=== PATIENT | female | born 1990 ===

== ENCOUNTER 2017-10-22 23:47 | Emergency (ER) | payer SELFPAY ==
[2014-08-26 09:48] VITALS: Wt 63.5 kg
[~2017-10-22 23:47] MED LIST: AMO875 PO; DOCU240C67 PO; IBU600 PO; IBU800 PO; IBUP-1618 PO; IBUP800T37 PO; KET10 PO; LOR5 PO; LOR5/325 PO; Lanolin TP; NO ROUTINE MEDS; OFLO5DRO OT; PER PO; PNV11TAB; TRA50 PO
--- NOTE | 2017-10-22 23:50 | ER Report ---
History and Physical Time Seen By : 23:50 HPI/ROS CHIEF COMPLAINT: Emergency long-term HISTORY OF PRESENT ILLNESS: This is a 27-year-old female. She was brought in by [place] [employer]. Evidently had an argument with her boyfriend who lives with her. The boyfriend had told the police that she had been making statements about that she didn't want to live and when they were talking and arguing about who would move without she said it didn't matter K she wasn't going to be alive anymore. At this time, she is very angry and will not answer any questions. She keeps saying that if her dog is left with her boyfriend that her boyfriend will kill the dog, she won't do anything until we make sure the dog is safe. She is saying that she didn't do anything wrong and she refuses to stay. She keeps saying that the please need to find all the drugs in the home. She also states that her boyfriend needs to be arrested right away. Other than these statements, she will not talk to me other than swearing at me and calling me many profane names. She was refusing to allow any blood work, urine test, or physical exam. The police indicate that there were some text messages that alluded to Hurst killing herself as well, but there was never any distinct statement of suicidal intent. She did punch a window and has a laceration on her left wrist that she will not let me evaluate. Allergies: Coded Allergies: latex (Verified Adverse Reaction, Mild, ITCHING, 10/22/17) SENSITIVE TO AVACADO AND BANANA Home Meds Reported Medications Eux679/Iron Fumarate/Fa/Dss ( 19 TABLET) 1 Each Tablet, TAB 07/07/14 Discontinued Scripts Oxycodone/Acetaminophen (OXYCODONE/ACETAMINOPHEN 5MG/325 MG) 1 Tab Tab, 1-2 TAB PO Q4H Y for PAIN, #30 TAB 0 Refills Prov:LUAN GARVIN MD 08/29/14 [Lanolin] 7 GM OINT No Conflict Check, 0 GM TP PRN Y for DISCOMFORT FOR NURSING MOTHERS Prov:LUAN GARVIN MD 08/29/14 Ibuprofen (IBUPROFEN) 800 Mg Tab, 800 MG PO Q8H@08,16,00 for 14 Days, TAB Prov:LUAN GARVIN MD 08/29/14 Docusate Calcium (DOCUSATE CALCIUM) 240 Mg Cap, 240 MG PO BID for 14 Days, CAPSULE Prov:LUAN GARVIN MD 08/29/14 Past Medical/Surgical History Reviewed Nurses Notes: Yes Old Medical Records Reviewed: Yes (reviewed old records and did not find any past medical history that his significant other than she has had a .) Hx Smoking: No Smoking Status: Former Smoker Exposure to Second Hand Smoke?: No Hx Substance Use Disorder: No Hx Alcohol Use: No Constitutional Vital Sign - Last 24 Hours 10/22/17 10/23/17 10/23/17 10/23/17 23:49 00:50 01:05 01:20 Temp 98.4 Pulse 124 97 110 115 Resp 16 B/P (MAP) 129/90 Pulse Ox 95 93 90 90 O2 Delivery Room Air 10/23/17 10/23/17 10/23/17 10/23/17 01:35 01:40 01:45 02:00 Pulse 107 112 112 114 B/P (MAP) 100/68 (79) 93/64 (74) Pulse Ox 91 92 92 10/23/17 10/23/17 10/23/17 10/23/17 02:30 02:45 03:00 03:11 Pulse 115 102 103 ??? B/P (MAP) 104/75 (85) Pulse Ox 94 10/23/17 10/23/17 10/23/17 10/23/17 03:16 03:31 03:46 03:52 Pulse 102 100 102 ??? Pulse Ox 93 93 92 94 Physical Exam Once the patient was sedated with Zyprexa 10 mg IM, Benadryl 50 mg IM, and Ativan 2 mg IM, I was able to do a physical exam although the patient was sedated at this point. General Appearance: Sedated, prior to that was alert and very angry and agitated. Eyes: Pupils equal and round no injection. ENT: Normal oral mucosa. Moist mucous membranes. Tympanic membranes are normal. Neck: Neck is supple and non tender. Respiratory: Chest is non tender, lungs are clear to auscultation. Cardiac: regular rate and rhythm Gastrointestinal: Abdomen is soft and non tender, no masses, bowel sounds normal. Musculoskeletal: Extremities have full range of motion. Non tender. Skin: She has no rashes. She does have a large flap laceration on the left volar wrist that needs to be repaired. A few small shallow lacerations around this. No other injuries noted. DIFFERENTIAL DIAGNOSIS: After history and physical exam differential diagnosis was considered for a patient with agitation, emergency long-term for suspected suicidal ideation although she will not confirm or deny this. Medical Decision Making Data Points Result Diagram: 10/23/17 0048 10/23/17 0048 Laboratory Hematology Test 10/23/17 00:48 10/23/17 03:10 Red Blood Count 5.36 M/uL (4.17-5.56) Mean Corpuscular Volume 87.7 fL (80.0-96.0) Mean Corpuscular Hemoglobin 30.6 pg (26.0-33.0) Mean Corpuscular Hemoglobin Concent 34.9 g/dL (32.0-36.0) Red Cell Distribution Width 12.7 % (11.5-14.5) Mean Platelet Volume 8.0 fL (7.2-11.1) Neutrophils (%) (Auto) 63.6 % (39.4-72.5) Lymphocytes (%) (Auto) 28.8 % (17.6-49.6) Monocytes (%) (Auto) 4.8 % (4.1-12.4) Eosinophils (%) (Auto) 2.3 % (0.4-6.7) Basophils (%) (Auto) 0.5 % (0.3-1.4) Nucleated RBC Relative Count (auto) 0.3 /100WBC Neutrophils # (Auto) 6.0 K/uL (2.0-7.4) Lymphocytes # (Auto) 2.7 K/uL (1.3-3.6) Monocytes # (Auto) 0.5 K/uL (0.3-1.0) Eosinophils # (Auto) 0.2 K/uL (0.0-0.5) Basophils # (Auto) 0.0 K/uL (0.0-0.1) Nucleated RBC Absolute Count (auto) 0.03 K/uL Sodium Level 145 mmol/L (137-145) Potassium Level 2.9 mmol/L (3.5-5.0) Chloride Level 107 mmol/L (98-107) Carbon Dioxide Level 20 mmol/L (22-31) Blood Urea Nitrogen 9 mg/dl (7-18) Creatinine 0.70 mg/dl (0.52-1.04) Glomerular Filtration Rate Calc > 60.0 Random Glucose 84 mg/dl (75-110) Calcium Level 8.8 mg/dl (8.4-10.2) Magnesium Level 2.0 mg/dl (1.7-2.2) Total Bilirubin 0.4 mg/dl (0.2-1.3) Aspartate Amino Transf (AST/SGOT) 27 U/L (0-35) Alanine Aminotransferase (ALT/SGPT) 42 U/L (0-56) Alkaline Phosphatase 52 U/L (0-126) Total Protein 6.6 gm/dl (6.3-8.2) Albumin 3.9 g/dl (3.5-5.0) Salicylates Level < 10 mg/L Salicylate Last Dose Date unk Acetaminophen Level < 10 ug/ml Serum Alcohol 117 mg/dl Urine Color Yellow Urine Clarity Clear Urine pH 5.0 pH (4.8-9.5) Urine Specific [place] 1.010 Urine Protein Negative mg/dL (NEGATIVE) Urine Glucose (UA) Negative mg/dL (NEGATIVE) Urine Ketones Trace mg/dL (NEGATIVE) Urine Blood Negative (NEGATIVE) Urine Nitrite Negative (NEGATIVE) Urine Bilirubin Negative (NEGATIVE) Urine Urobilinogen Negative mg/dL (0.2-1.9) Urine Leukocyte Esterase Negative (NEGATIVE) Urine RBC None /HPF (0-2/HPF) Urine WBC 1 /HPF (0-5/HPF) Urine Squamous Epithelial Cells Few /LPF (NONE-FEW) Urine Bacteria Negative /HPF (NONE-FEW) Urine Mucus Few /HPF (NONE-FEW) Urine HCG, Qualitative Negative (NEGATIVE) Urine Opiates Screen Negative Urine Barbiturates Screen Negative Ur Tricyclic Antidepressants Screen Negative Urine Phencyclidine Screen Negative Urine Amphetamines Screen Positive Urine Benzodiazepines Screen Negative Urine Cocaine Screen Negative Urine Cannabinoids Screen Positive Chemistry Test 10/23/17 00:48 10/23/17 03:10 White Blood Count 9.5 k/uL (4.5-11.0) Red Blood Count 5.36 M/uL (4.17-5.56) Hemoglobin 16.4 g/dL (12.0-16.0) Hematocrit 47.0 % (34.0-47.0) Mean Corpuscular Volume 87.7 fL (80.0-96.0) Mean Corpuscular Hemoglobin 30.6 pg (26.0-33.0) Mean Corpuscular Hemoglobin Concent 34.9 g/dL (32.0-36.0) Red Cell Distribution Width 12.7 % (11.5-14.5) Platelet Count 226 K/uL (150-450) Mean Platelet Volume 8.0 fL (7.2-11.1) Neutrophils (%) (Auto) 63.6 % (39.4-72.5) Lymphocytes (%) (Auto) 28.8 % (17.6-49.6) Monocytes (%) (Auto) 4.8 % (4.1-12.4) Eosinophils (%) (Auto) 2.3 % (0.4-6.7) Basophils (%) (Auto) 0.5 % (0.3-1.4) Nucleated RBC Relative Count (auto) 0.3 /100WBC Neutrophils # (Auto) 6.0 K/uL (2.0-7.4) Lymphocytes # (Auto) 2.7 K/uL (1.3-3.6) Monocytes # (Auto) 0.5 K/uL (0.3-1.0) Eosinophils # (Auto) 0.2 K/uL (0.0-0.5) Basophils # (Auto) 0.0 K/uL (0.0-0.1) Nucleated RBC Absolute Count (auto) 0.03 K/uL Glomerular Filtration Rate Calc > 60.0 Calcium Level 8.8 mg/dl (8.4-10.2) Magnesium Level 2.0 mg/dl (1.7-2.2) Total Bilirubin 0.4 mg/dl (0.2-1.3) Aspartate Amino Transf (AST/SGOT) 27 U/L (0-35) Alanine Aminotransferase (ALT/SGPT) 42 U/L (0-56) Alkaline Phosphatase 52 U/L (0-126) Total Protein 6.6 gm/dl (6.3-8.2) Albumin 3.9 g/dl (3.5-5.0) Salicylates Level < 10 mg/L Salicylate Last Dose Date unk Acetaminophen Level < 10 ug/ml Serum Alcohol 117 mg/dl Urine Color Yellow Urine Clarity Clear Urine pH 5.0 pH (4.8-9.5) Urine Specific [place] 1.010 Urine Protein Negative mg/dL (NEGATIVE) Urine Glucose (UA) Negative mg/dL (NEGATIVE) Urine Ketones Trace mg/dL (NEGATIVE) Urine Blood Negative (NEGATIVE) Urine Nitrite Negative (NEGATIVE) Urine Bilirubin Negative (NEGATIVE) Urine Urobilinogen Negative mg/dL (0.2-1.9) Urine Leukocyte Esterase Negative (NEGATIVE) Urine RBC None /HPF (0-2/HPF) Urine WBC 1 /HPF (0-5/HPF) Urine Squamous Epithelial Cells Few /LPF (NONE-FEW) Urine Bacteria Negative /HPF (NONE-FEW) Urine Mucus Few /HPF (NONE-FEW) Urine HCG, Qualitative Negative (NEGATIVE) Urine Opiates Screen Negative Urine Barbiturates Screen Negative Ur Tricyclic Antidepressants Screen Negative Urine Phencyclidine Screen Negative Urine Amphetamines Screen Positive Urine Benzodiazepines Screen Negative Urine Cocaine Screen Negative Urine Cannabinoids Screen Positive Toxicology Test 10/23/17 00:48 10/23/17 03:10 Salicylates Level < 10 mg/L Salicylate Last Dose Date unk Acetaminophen Level < 10 ug/ml Serum Alcohol 117 mg/dl Urine Opiates Screen Negative Urine Barbiturates Screen Negative Ur Tricyclic Antidepressants Screen Negative Urine Phencyclidine Screen Negative Urine Amphetamines Screen Positive Urine Benzodiazepines Screen Negative Urine Cocaine Screen Negative Urine Cannabinoids Screen Positive Urinalysis Test 10/23/17 03:10 Urine Color Yellow Urine Clarity Clear Urine pH 5.0 pH (4.8-9.5) Urine Specific [place] 1.010 Urine Protein Negative mg/dL (NEGATIVE) Urine Glucose (UA) Negative mg/dL (NEGATIVE) Urine Ketones Trace mg/dL (NEGATIVE) Urine Blood Negative (NEGATIVE) Urine Nitrite Negative (NEGATIVE) Urine Bilirubin Negative (NEGATIVE) Urine Urobilinogen Negative mg/dL (0.2-1.9) Urine Leukocyte Esterase Negative (NEGATIVE) Urine RBC None /HPF (0-2/HPF) Urine WBC 1 /HPF (0-5/HPF) Urine Squamous Epithelial Cells Few /LPF (NONE-FEW) Urine Bacteria Negative /HPF (NONE-FEW) Urine Mucus Few /HPF (NONE-FEW) Urine HCG, Qualitative Negative (NEGATIVE) EKG/Imaging EKG Interpretation 12 lead EKG: Rhythm: Sinus tachycardia, rate 105 [place]: normal QRS: normal ST segments: normal ED Course/Re-evaluation Clinical Indication for ER IV: Hydration, IV Access ED Course Patient would not cooperate, so was given Zyprexa 10mg IM, Benadryl 50mg IM and Ativan 2mg IM. She finally allowed the nurses to give these medicines injections in the thigh. Once sedated, we were able to get labs and urine and repair her laceration on her wrist. Discussed with Dr. Dash, who accepted. Recommended Cephalexin 500mg 4 times a day for 5 days. Stitches out in 7 days. Because of the low potassium, a liter of normal saline was given and the patient was given KCl 20mEq rider with this. No EKG changes noted. Procedure Procedure: Laceration Repair Consent was assumed, the patient was sedated. Wound cleaned extensively with Hibiclens and saline. Anesthesia: 1% lidocaine without epinephrine and 0.5% bupivacaine without epinephrine. Location: Left volar wrist. Length: Flap about 5 cm. Wound repair: 9 interrupted sutures. The wound repair was simple and performed by myself. Wound care instructions discussed. Sutures need to be removed in 7 days. Cephalexin 500mg four times a day for 5 days. Decision to Disposition Date: Oct 23, 2017 Decision to Disposition Time: 02:56 Depart Departure Latest Vital Signs Vital Signs Date Time Temp Pulse Resp B/P (MAP) Pulse Ox O2 Delivery O2 Flow Rate FiO2 10/23/17 03:52 ??? 94 10/23/17 03:00 104/75 (85) 10/22/17 23:49 98.4 16 Room Air Impression: Primary Impression: Suicidal risk Additional Impression: Self-injurious behavior Condition: Improved Disposition: XFER TO [facility] Referrals: BETHANY PEREIRA CNM (PCP) Problem Qualifiers BLOSSOM ARMSTRONG MD Oct 22, 2017 23:50
[2017-10-23] MEDS ORDERED: diphenhydrAMINE 50 MG/ML VIAL IM ONE (00:05)
[2017-10-23] MEDS ORDERED: OLANZapine 10 MG VIAL IM ONLY ONE (00:05)
[2017-10-23] MEDS ORDERED: WATER STERILE 10 ML VIAL IM ONLY ONE (00:05)
[2017-10-23] MEDS ORDERED: LORazepam 2 MG/ML VIAL IM ONE (00:05)
[2017-10-23 01:00] LABS: PLATELET COUNT, AUTOMATED 226 K/uL (150-450)
[2017-10-23] MEDS ORDERED: KCL (*) 20 MEQ/100 ML PREMIX 100 ML IV ONE (01:25)
[2017-10-23] MEDS ORDERED: NS(*) 0.9% 1000 ML BAG 1,000 ML IV ONE (01:25)
--- NOTE | 2017-10-23 01:36 | EKG ---
[place] [facility] [place] PENNY BOW[place] : [id number] MR: [id number] V: [id number] EXAM DATE: ORDERING PHYSICIAN: BLOSSOM ARMSTRONG TECHNOLOGIST: KARISHMA Test Reason : Blood Pressure : / mmHG Vent. Rate : 105 BPM Atrial Rate : 105 BPM P-R Int : 120 ms QRS Dur : 096 ms QT Int : 364 ms P-R-T Axes : 070 080 055 degrees QTc Int : 481 ms Sinus tachycardia Possible Left atrial enlargement Nonspecific ST findings Borderline ECG When compared with ECG of 07-JUL-2014 02:19, No significant change was found Confirmed by SUNI RICHARDS ([id number]) on 10/23/2017 6:06:51 AM Referred By: NATHANIEL Confirmed By:SUNI RICHARDS
--- NOTE | 2017-10-23 03:13 | BHS - Psychiatric Evaluation ---
ER - Title 25 MHE Evaluation Title 25 Evaluation Patient Detained By: Law Enforcement Referral Source: Patient, boyfriend, [place] Police Date Patient Detained: Oct 22, 2017 Time Patient Detained: 23:26 Date Snf Expires: Oct 25, 2017 Time Snf Expires: 23:26 Legal Status: Police Hold: No Legal Status: Residence: [facility] Assessment Data Provided By: Patient, Law Enforcement HPI/ROS: CHIEF COMPLAINT: Emergency penitentiary HISTORY OF PRESENT ILLNESS: This is a 27-year-old female. She was brought in by [place] [employer]. Evidently had an argument with her boyfriend who lives with her. The boyfriend had told the police that she had been making statements about that she didn't want to live and when they were talking and arguing about who would move without she said it didn't matter K she wasn't going to be alive anymore. At this time, she is very angry and will not answer any questions. She keeps saying that if her dog is left with her boyfriend that her boyfriend will kill the dog, she won't do anything until we make sure the dog is safe. She is saying that she didn't do anything wrong and she refuses to stay. She keeps saying that the please need to find all the drugs in the home. She also states that her boyfriend needs to be arrested right away. Other than these statements, she will not talk to me other than swearing at me and calling me many profane names. She was refusing to allow any blood work, urine test, or physical exam. The police indicate that there were some text messages that alluded to [place] killing herself as well, but there was never any distinct statement of suicidal intent. She did punch a window and has a laceration on her left wrist that she will not let me evaluate. Admit due to SI or Attempt: No Suicide Plan: No Plan Alcohol or Drugs Involved: Yes Current Intoxication Info: Blood alcohol 117 Is Patient Info Reliable: No Is Collateral Info Reliable: Yes Mental Status Exam General Appearance: Unkept, Tearful, Psychomotor Agitation Speech: Other (angry and yelling) Mood: Other (angry) Affect: Agitated Thought Process: Goal Directed, Other Thought Content: Other (Keeps yelling and talking about her dog, drugs at home , wanting her boyfriend arrest.) Sensorium: No Clear Cognition: Other (Will not answer questions) Insight Judgment: Poor Current Risk & History Current Dangerous Risk Assessm: Self-Injurious Behaviors, Agitation this Encounter Past Dangerous Risk Assessm: Other (unable to determine, suicidal statements made to boyfriend) Previous Suicide Attempt: No Previous Attempt (No known attempts, but will not answer questions) Previous Psychiatric Illness: Unknown Previous Psychiatric Treatment: No (None known at this time) Risk Assessment & Disposition Evaluated Risk Assessment: She is agitated, angry, and is refusing to talk to me about the situation. She is refusing to stay as well. Impression: Primary Impression: Suicidal risk Additional Impression: Self-injurious behavior Meets Mental Illness Req.: Yes Meets Dangerousness Req.: Yes Emergency Snf to be: Upheld Date of Decision: Oct 23, 2017 Time of Decision: 01:30 Patient is Medically Stable at: Yes Disposition: [facility] Problem Qualifiers BLOSSOM ARMSTRONG MD Oct 23, 2017 03:12
[2017-10-23 04:00] VITALS: BP 109/75
== END 2017-10-23 04:30 ==
LOC: ER 23:52
DX: R45.851 Suicidal ideations (principal); R79.89 Other specified abnormal findings of blood chemistry; R00.0 Tachycardia, unspecified
CPT/HCPCS: 12002; 36415; 80305; 80320; 80329; 81001; 81025; 83735; 84443; 85025; 93005; 96361; 96365; 96366; 96372; 99284; A4216; A4353; J1200; J2060; J3480; J3490; J7030; 82040; 82247; 82310; 82374; 82435; 82565; 82947; 84075; 84132; 84155; 84295; 84450; 84460; 84520

== ENCOUNTER 2017-10-23 04:03 | Inpatient (IN) | payer SELFPAY ==
[2014-08-26 09:48] VITALS: BMI 33.1
[2017-10-23] VITALS (7 sets, daily range): BP systolic 98–116; BP diastolic 55–83
[2017-10-23] MEDS ORDERED: MAG HYD/AL HYD/SIMETH 30ML UDC PO PRN (04:50)
[2017-10-23] MEDS: CEPHALEXIN MONO 500 MG CAP PO SCH ×4 (08:20→21:28)
[2017-10-23] MEDS: MULTIVITAMINS PO SCH (08:20)
--- NOTE | 2017-10-23 10:16 | EKG ---
FACILITY: [facility] PATIENT NAME: PENNY BOWLES : [id number] MR: [id number] V: [id number] EXAM DATE: ORDERING PHYSICIAN: CRISTIANA MEDINA TECHNOLOGIST: Test Reason : SINUS TACH-REPEAT Blood Pressure : / mmHG Vent. Rate : 088 BPM Atrial Rate : 088 BPM P-R Int : 130 ms QRS Dur : 088 ms QT Int : 392 ms P-R-T Axes : 043 076 064 degrees QTc Int : 474 ms Normal sinus rhythm Normal ECG When compared with ECG of 23-OCT-2017 01:26, Nonspecific T wave abnormality no longer evident in Anterior leads Confirmed by ZACK SIMMS ([id number]) on 10/25/2017 11:00:21 AM Referred By: CAROL Confirmed By:ZACK SIMMS
[2017-10-23 10:31] LABS: PLATELET COUNT, AUTOMATED 251 K/uL (150-450)
--- NOTE | 2017-10-23 15:43 | HISTORY AND PHYSICAL ---
DATE OF ADMISSION: October 23, 2017 Patient was seen at approximately 1000 hours on October 23, 2017 for note concerning this dictation. PRESENTING PROBLEM/CHIEF COMPLAINT Patient emergency detained after exhibiting self-harm behaviors and very noncompliant with care. HISTORY OF PRESENT ILLNESS This is a 27-year-old female who has had no previous psychiatric visits here at [facility], and according to the patient, no previous psychiatric evaluations. Patient apparently was fighting with her boyfriend, police were summoned. Patient had punched a window apparently and had lacerated her wrist, which was repaired in the emergency room. Patient was brought in under an emergency detainment. Patient uncooperative in the ER, calling the ER physician augie del toro. Patient eventually sedated and chemically restrained. Patient was brought to the [facility] without incident. Next day patient remained somewhat lethargic, recovering from the effects of chemical sedation. Patient reports that she had been fighting with her significant other other who has been with her for over a year and who she lives with. Patient reports that a friend "killed himself" a week ago and this has bothered the patient tremendously. Patient cooperative with interview, but very guarded as to answering questions. In the emergency room patient indicated that drugs should be removed from the home and that patient's significant other should be arrested immediately. It is known that the patient' s two children, ages 3 and 8, are believed to be under the supervision currently of the patient's mother, who is in [place] according to the patient right now. Patient herself somewhat reluctant to divulge any other information , and denies any other symptoms of psychiatric concern. MENTAL HEALTH HISTORY Patient has never been an inpatient in a psychiatric g[facility], according to her, and patient has never had any outpatient psychiatric treatment, and no psychiatric medications prescribed. When asked if patient has ever had a suicide attempt, patient gives questionable vague responses and appears overall to be a semi-accurate historian. FAMILY PSYCHIATRIC HISTORY Patient reports her mother uses alcohol and drugs throughout her life. There are no suicides in the family and no other psychiatric concerns. PAST MEDICAL HISTORY Patient reports having two children, again ages 3 and 8, both by . Patient has currently a cut made by glass, currently repaired in the emergency room. Patient on cephalexin for five days. Patient denies any other significant medical concerns, has no allergies,and not on medications. SOCIAL HISTORY Patient reports being born in [place], [place], raised in [place]. Parents were not together at the time of her . She has no contact with her father. She does remain in contact with her mother. She was the only child. She did not graduate high school, but did obtain a GED. 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 She is from a and living with a boyfriend of one year. Patient reports relationship is now completely over and there is no chance they will get back together. LEGAL HISTORY Patient denies any legal history. SUBSTANCE ABUSE HISTORY When asked about patient's substance abuse history, she reports "none." It is notable that on laboratory data upon admission, patient as positive for cannabis , serum alcohol level of 117 and positive for amphetamines as well. Again, patient is resistant to being open to questions concerning her admission. PHYSICAL EXAMINATION GENERAL: Please see emergency room note. Notable for agitated and intoxicated female, requiring chemical restraint. VITAL SIGNS: At the time of admission, temperature 98.4, pulse 124, respiratory rate 16, blood pressure 129/90 and pulse oximetry 95 on room air. LABORATORY DATA: CBC notable for hemoglobin elevated slightly at 16.4. Chemistry panel notable for potassium low at 2.9. TSH 0.98. Urinalysis was unremarkable. screen negative. Toxicology screen notable for serum alcohol level of 117. Positive for cannabis, positive for amphetamines. MENTAL STATUS EXAMINATION GENERAL APPEARANCE, BEHAVIOR AND ATTITUDE: This is a fairly well-groomed 27- year-old female showing some psychomotor retardation upon initial interview, recovering from chemical restraint. Patient very quiet, soft spoken, and nontearful, making poor eye contact. No bizarre mannerisms or tics. SPEECH: Soft and quiet. MOOD: Described as somewhat irritated. AFFECT: Constricted, mood congruent. THOUGHT PROCESSES: No loose associations or flight of ideas could be detected. THOUGHT CONTENT: Free of obvious auditory or visual hallucinations, ideas of reference, thought broadcastings, delusions, obsessions, compulsions. Patient vague as to any suicidal ideation or previous attempts. Denying homicidal ideation. SENSORIUM: Clear. COGNITION: Alert and oriented to person, place, time and situation. MEMORY: Immediate, recent and remote estimated intact. INTELLIGENCE: Average based on interview. INSIGHT AND JUDGMENT: Currently clouded yet, recovering from chemical restraint and likely effects of alcohol and illicit substance use. ASSESSMENT This is a 27-year-old female who was initially very uncooperative with admission process in the ER, requiring chemical restraint. We will continue to evaluate and encourage patient to open up about any problems that she is currently experiencing. Patient states that she has been living with her boyfriend and this relationship will not continue. We will continue to address housing issues and address issues of care for the 3-year-old and 8-year-old children. DIAGNOSES PER DSM-V Alcohol intoxication. Rule out stimulant use disorder and amphetamine intoxication. Cannabis use disorder. Partner relational problems. Substance-induced mood disorder. Social stressors. PLAN 1. Admit to the unit. 2. Necessary precautions to be implemented. 3. Patient will participate in individual and group therapy. 4. Medications to be titrated as necessary. 5. Collateral information to be obtained. 6. Estimated length of stay three to five days. Patient is currently under an emergency detainment. Will continue to evaluate if need of 10-day hearing extension exists. DRU
[2017-10-23] MEDS ORDERED: OLANZapine 10 MG VIAL IM ONLY PRN (15:45)
[2017-10-23] MEDS ORDERED: OLANZapine ZYDIS ODT 5MG TABDP PO PRN (15:45)
[2017-10-23] MEDS ORDERED: LORazepam 2 MG/ML VIAL IM PRN (16:00)
[2017-10-23] MEDS ORDERED: diphenhydrAMINE 50 MG/ML VIAL IM PRN (16:00)
[2017-10-24 06:22] VITALS: BP 100/77
[2017-10-24] MEDS: MULTIVITAMINS PO SCH (08:26)
[2017-10-24] MEDS: NICOTINE 21 MG/24 HR PATCH TD SCH ×2 (08:27→09:00)
[2017-10-24] MEDS: CEPHALEXIN MONO 500 MG CAP PO SCH ×4 (09:08→20:53)
--- NOTE | 2017-10-24 12:30 | BHS Progress Note ---
[facility] - Subjective Progress Notes Subjective Patient much more cooperative today, and less resistant to care. Will continue to educate patient on addiction issues and appropriate management of stress. Patient has been working toward repairing relationship with her significant other recently, and does admit to being vagualy aware that alcohol and substance abuse problems are negatively affecting their lives. Will continue education and likely discharge tomorrow afternoon. Suicidal Ideation: None Homicidal Ideation: None [facility] - Objective Physical Exam Vital Signs Vital Signs Date Time Temp Pulse Resp B/P (MAP) Pulse Ox O2 Delivery O2 Flow Rate FiO2 10/24/17 06:22 98.8 79 100/77 (85) 95 Room Air 10/23/17 10:40 16 Muscle Strength and Tone: WNL Gait and Station: Steady [facility] Medications Reviewed: Side Effects, Benefits of Medication, Risks Allergies Reviewed: Yes Mental Status Exam General Appearance: Casual, Well Groomed, Good Eye Contact, Cooperative, Polite , Good Interaction, No Unkept, No Tearful, No Psychomotor Agitation, No Psychomotor Retardation, No Bizarre Mannerisms, No Tics Speech: Clear, Spontaneous, Normal Rate, Normal Rhythm, Normal Volume, Normal Tone, No Inappropriate Mood: Dysthmic/Depressed (improving) Affect: Calm, No Anxious, No Agitated Thought Process: Organized, Logical, Goal Directed, No Loose Associations, No Flight of Ideas Thought Content: No Suicidal Ideation, No Homicidal Ideation, No Delusions, No Auditory Halllucinations, No Visual Hallucinations, No Thought Broadcasting, No Ideas of Reference, No Obsessions, No Compulsions Sensorium: Clear Cognition: Alert & Oriented-Person, Alert & Oriented-Place, Alert & Oriented- Time, Nbjgb-[id number]-[id number] Memory: Immediate, Recent, Remote Intelligence: Average Insight Judgment: Fair (improving in absence of drug and alcohol use. ) Result Diagram: 10/23/17 1003 10/23/17 1003 [facility] Assessment and Plan Qgpe-[id number] Encounter Date: Oct 24, 2017 Cgoo-em-Ajun Encounter Time: 12:30 [facility] Plan: Necessary Precautions, Individual/Group Therapy, Admin/Titrate Meds, Educate Patient Tobacco Medications: Started Multpiple Antipsychotics Used: No Problems: (1) Partner relational problem Status: Acute (2) Substance induced mood disorder Status: Acute (3) Cannabis use disorder, moderate, dependence Status: Chronic (4) Stimulant use disorder Status: Chronic (5) Alcohol use disorder, moderate, in early remission Status: Chronic Condition 1. continue treatment, focus on substance use, and stress management. 2. likely discharge tomorrow. CRISTIANA MEDINA MD Oct 24, 2017 12:30
[2017-10-24] MEDS: IBUPROFEN 600 MG TAB PO PRN (13:08)
[2017-10-24 13:15] VITALS: BP 112/78
--- NOTE | 2017-10-24 14:29 | RADIOLOGY IMAGING REPORT ---
FACILITY: [facility] [place] PATIENT NAME: Jo Barnes : 1990 MR: [id number] V: [id number] EXAM DATE: ORDERING PHYSICIAN: CRISTIANA MEDINA TECHNOLOGIST: [place] [facility] [place] : 1990 Visit/Account:[id number] Date of Sevice: 10/24/2017 Exam type: WRIST RIGHT MIN 3 VIEW History: PAIN AFTER STRIKING AN OBJECT, cut wrist 10/22/2017 Comparison: Right hand performed today. Findings: A bandage artifact surrounds the right wrist. No radiopaque soft tissue foreign body seen. No evide nce of acute fracture or dislocation. IMPRESSION: 1. Bandage artifact surrounds the right wrist. No evidence of acute fracture-dislocation or radiopaque foreign body Report Dictated By: Elizabeth Bryan MD at 10/24/2017 2:24 PM Report E-Signed By: Elizabeth Bryan MD at 10/24/2017 2:25 PM WSN:[email or web address]
--- NOTE | 2017-10-24 14:31 | RADIOLOGY IMAGING REPORT ---
FACILITY: [facility] - [place] PATIENT NAME: Jo Barnes : 1990 MR: [id number] V: [id number] EXAM DATE: ORDERING PHYSICIAN: CRISTIANA MEDINA TECHNOLOGIST: Location: [facility] [place] Patient: Jo Barnes : 1990 Visit/Account:[id number] Date of Sevice: 10/24/2017 Exam type: HAND COMPLETE RIGHT History: PAIN AFTER STRIKING AN OBJECT, cut right breast 10/22/2017 Comparison: Right wrist performed today. Findings: There is no evidence of acute fracture, dislocation or radiopaque foreign body involving the right terry nd. A bandage artifact surrounds the right wrist IMPRESSION: 1. No acute osteoarticular abnormality the right hand is seen Report Dictated By: Elizabeth Bryan MD at 10/24/2017 2:26 PM Report E-Signed By: Elizabeth Bryan MD at 10/24/2017 2:27 PM WSN:[email or web address]
[2017-10-24] MEDS ORDERED: NICOTINE CARTRIDGE 1 EA PO PRN (15:45)
[2017-10-24] MEDS: NICOTINE INH SYSTEM 10 MG/INH INH PRN ×2 (16:16→19:07)
[2017-10-24 20:54] VITALS: BP 109/85
[2017-10-25 05:55] VITALS: BP 109/70
[2017-10-25] MEDS: CEPHALEXIN MONO 500 MG CAP PO SCH ×3 (08:37→16:19)
[2017-10-25] MEDS: MULTIVITAMINS PO SCH (08:37)
[2017-10-25] MEDS: NICOTINE INH SYSTEM 10 MG/INH INH PRN ×4 (08:37→15:26)
[2017-10-25] MEDS: IBUPROFEN 600 MG TAB PO PRN (08:43)
[2017-10-25] MEDS ORDERED: MULT-1379 PO (10:04)
[2017-10-25] MEDS ORDERED: CEPH500T7 PO (10:04)
[2017-10-25] MEDS ORDERED: NIC10R INH (10:05)
[2017-10-25] MEDS ORDERED: NICOTROL CARTRIDGE PO (10:06)
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
== END 2017-10-25 16:28 | disposition home or self-care (01) | DRG 897 ==
LOC: BHS 04:03
PROVIDERS: ADMIT Psychiatry & Neurology Psychiatry; ATTEND Psychiatry & Neurology Psychiatry
DX: F10.94 Alcohol use, unspecified with alcohol-induced mood disorder (principal); F12.20 Cannabis dependence, uncomplicated; F15.90 Other stimulant use, unspecified, uncomplicated; S61.511A Laceration without foreign body of right wrist, initial encounter; X78.0XXA Intentional self-harm by sharp glass, initial encounter; Y90.5 Blood alcohol level of 100-119 mg/100 ml; Y92.009 Unspecified place in unspecified non-institutional (private) residence as the place of occurrence of the external cause; Y99.8 Other external cause status; Z81.1 Family history of alcohol abuse and dependence; Z81.3 Family history of other psychoactive substance abuse and dependence; Z63.0 Problems in relationship with spouse or partner
CPT/HCPCS: 36415; 82040; 82247; 82310; 82374; 82435; 82565; 82947; 83735; 84075; 84132; 84155; 84295; 84450; 84460; 84520; 85025; 93005

== ENCOUNTER 2018-03-22 10:13 | Emergency (ER) | payer MEDICAID, OTHER ==
[2014-08-26 09:48] VITALS: Wt 63.5 kg
[~2018-03-22 10:13] MED LIST changes: +CEPH500T7 PO; +MULT-1379 PO; +NIC10R INH; +NICOTROL CARTRIDGE PO
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
[2018-03-22] MEDS ORDERED: DIPHTH/TETANUS/ACEL. PERTUSSIS IM ONLY ONE (10:35)
[2018-03-22] MEDS ORDERED: TETRACAIN/EPI/LIDO GEL 3ML SYR TP ONE (10:50)
[2018-03-22] MEDS ORDERED: KETOROLAC 60 MG/2 ML VIAL IM ONE (10:50)
[2018-03-22] MEDS ORDERED: CEPH500C24 PO (11:38)
[2018-03-22 11:43] VITALS: BP 118/74
== END 2018-03-22 11:40 | disposition home or self-care (01) ==
LOC: ER 10:22
DX: S51.812A Laceration without foreign body of left forearm, initial encounter (principal); X78.9XXA Intentional self-harm by unspecified sharp object, initial encounter
CPT/HCPCS: 12006; 90471; 90715; 96372; 99284; J1885